=== PATIENT | female | born 1935 | race African-American/Black ===

== ENCOUNTER 2018-09-28 15:19 | Emergency (ER) | payer MEDICARE, BC ==
[~2018-09-28] VITALS: Ht 157.5 cm; Wt 80.0 kg
[2018-09-28 17:40] VITALS: BP 116/81
== END 2018-09-28 17:41 | disposition home or self-care (01) ==
LOC: ER 15:19
DX: M25.561 Pain in right knee (principal); Z90.710 Acquired absence of both cervix and uterus; W01.0XXA Fall on same level from slipping, tripping and stumbling without subsequent striking against object, initial encounter; Y93.9 Activity, unspecified; Y92.9 Unspecified place or not applicable; Z98.890 Other specified postprocedural states
CPT/HCPCS: 99282